=== PATIENT | female | born 1950 | race Caucasian/White ===

== ENCOUNTER → 2024-01-20 13:26 | Outpatient (REF) | payer OTHER, SELFPAY | LOC: WDC 13:26 | PROVIDERS: ATTENDING PHYSICIAN Student in an Organized Health Care Education/Training Program | DX: Z12.31 Encounter for screening mammogram for malignant neoplasm of breast (principal) | CPT/HCPCS: 77063; 77067 ==

== ENCOUNTER → 2025-01-13 11:26 | Outpatient (REF) | payer OTHER, SELFPAY | LOC: HWRCS 11:26 | PROVIDERS: PRIMARYCARE PHYSICIAN Student in an Organized Health Care Education/Training Program | DX: E78.1 Pure hyperglyceridemia (principal); Z68.41 Body mass index [BMI] 40.0-44.9, adult | CPT/HCPCS: 78452; 93017; A9500; J2785 ==

== ENCOUNTER → 2025-01-20 13:16 | Outpatient (REF) | payer OTHER, SELFPAY | LOC: WDC 13:16 | DX: Z12.31 Encounter for screening mammogram for malignant neoplasm of breast (principal) | CPT/HCPCS: 77063; 77067 ==

== ENCOUNTER → 2025-01-28 13:46 | Outpatient (REF) | payer OTHER, SELFPAY | LOC: HWRCS 13:46 | PROVIDERS: ATTENDING PHYSICIAN Internal Medicine Cardiovascular Disease; FAMILY PHYSICIAN Student in an Organized Health Care Education/Training Program | DX: R94.39 Abnormal result of other cardiovascular function study (principal); R06.02 Shortness of breath | CPT/HCPCS: 93306 ==

== ENCOUNTER → 2025-02-22 11:46 | Outpatient (REF) | payer OTHER, SELFPAY | LOC: REG 11:46 | PROVIDERS: ATTENDING PHYSICIAN Internal Medicine Cardiovascular Disease | DX: R94.39 Abnormal result of other cardiovascular function study (principal); R06.02 Shortness of breath | CPT/HCPCS: 71046 ==